=== PATIENT | female | born 1935 | race Caucasian/White ===

== ENCOUNTER 2021-11-25 05:44 | Inpatient (IN) | payer OTHER ==
[~2021-11-25] VITALS: Ht 157.5 cm; Wt 44.9 kg
[2021-11-25 05:50] VITALS: BP_SYST 129
[2021-11-25] MEDS ORDERED: ACETAMINOPHEN 500 MG TABLET PO ONE (06:30)
[2021-11-25] MEDS ORDERED: BACITRACIN 1 GM OINT TP ONE ×2 (06:30→09:20)
[2021-11-25] MEDS ORDERED: DIPHTH,PERTUSS(ACELL),TET VAC 0.5 ML VIAL (Tdap) I.M. ONE (06:45)
[2021-11-25] MEDS ORDERED: MORPHINE 4 MG INJ. 4 MG/ML VIAL IVP ONE (07:15)
[2021-11-25 08:10] LABS: BASOPHILS % (AUTO) 0.5 % (0.0-2.0); EOSINOPHILS % (AUTO) 0.4 % (0.0-4.0); HEMOGLOBIN 10.5 g/dL (12.0-16.0); LYMPHOCYTES # (AUTO) 0.8 K/uL (1.0-5.5); LYMPHOCYTES % (AUTO) 9.5 % (20.5-51.5); MEAN CORPUSCULAR HEMOGLOBIN 33 pg (27-31); MEAN CORPUSCULAR HGB CONC 34 % (32-36); MEAN CORPUSCULAR VOLUME 96 fL (79.0-98.0); MONOCYTES # (AUTO) 0.5 K/uL (0.0-1.0); MONOCYTES % (AUTO) 5.4 % (1.7-9.3); NEUTROPHILS # (AUTO) 7.4 K/uL (1.8-7.7); NEUTROPHILS % (AUTO) 84.2 % (40.0-70.0); PLATELET COUNT (AUTO) 327 K/uL (130-430); RED BLOOD CELL COUNT(AUTO) 3.22 MIL/uL (4.2-6.2); RED CELL DISTRIBUTION WIDTH 15.6 % (9.0-15.0); WHITE BLOOD COUNT (AUTO) 8.8 K/uL (4.8-10.8)
[2021-11-25 08:30] LABS: ANION GAP 8 (5-15); CALCIUM 8.7 mg/dL (8.4-11.0); CHLORIDE 106 mmol/L (98-107); CREATININE 0.62 mg/dL (0.55-1.30); GLUCOSE 110 mg/dL (70-99); POTASSIUM 3.6 mmol/L (3.5-5.1); UREA NITROGEN, BLOOD 19 mg/dL (8-21)
[2021-11-25 08:38] LABS: ALANINE AMINOTRANSFERASE 18 U/L (12-78); ALBUMIN 2.8 g/dL (3.4-4.8); ASPARTATE AMINOTRANSFERASE 30 U/L (10-37); TOTAL BILIRUBIN 0.3 mg/dL (0.0-1.0)
[2021-11-25 10:57] LABS: BILIRUBIN,URINE NEGATIVE (NEGATIVE); BLOOD, URINE NEGATIVE (NEGATIVE); CLARITY/URINE CLEAR (CLEAR); COLOR,URINE YELLOW (YELLOW); GLUCOSE,URINE NEGATIVE (NEGATIVE); KETONES,URINE NEGATIVE (NEGATIVE); LEUKOCYTE ESTERASE ,URINE NEGATIVE (NEGATIVE); NITRITE, URINE NEGATIVE (NEGATIVE); PROTEIN URINE NEGATIVE (NEGATIVE); UROBILINOGEN,URINE 0.2 (0.2-1.0)
[2021-11-25] MEDS ORDERED: HYDROmorphone 2 MG/ML VIAL IVP PRN (12:15)
[2021-11-25] MEDS ORDERED: ONDANSETRON 4 MG ODT TAB PO PRN (12:15)
[2021-11-25 12:30] VITALS: BP_SYST 128
[2021-11-25] MEDS: D5/0.45 NS 1,000 ML IV SCH (13:39)
[2021-11-25] MEDS: HYDROcodone/ACETAMIN 5-325 MG TAB (NORCO/ VICODIN) PO PRN ×2 (13:40→21:02)
[2021-11-25 14:39] LABS: BASOPHILS # (AUTO) 0.1 K/uL (0.0-0.2); BASOPHILS % (AUTO) 0.6 % (0.0-2.0); EOSINOPHILS % (AUTO) 0.4 % (0.0-4.0); HEMOGLOBIN 10.3 g/dL (12.0-16.0); LYMPHOCYTES % (AUTO) 9.5 % (20.5-51.5); MEAN CORPUSCULAR HEMOGLOBIN 33 pg (27-31); MEAN CORPUSCULAR HGB CONC 34 % (32-36); MEAN CORPUSCULAR VOLUME 96 fL (79.0-98.0); MONOCYTES # (AUTO) 0.6 K/uL (0.0-1.0); MONOCYTES % (AUTO) 6.2 % (1.7-9.3); NEUTROPHILS # (AUTO) 8.7 K/uL (1.8-7.7); NEUTROPHILS % (AUTO) 83.3 % (40.0-70.0); PLATELET COUNT (AUTO) 316 K/uL (130-430); RED BLOOD CELL COUNT(AUTO) 3.13 MIL/uL (4.2-6.2); RED CELL DISTRIBUTION WIDTH 15.5 % (9.0-15.0); WHITE BLOOD COUNT (AUTO) 10.5 K/uL (4.8-10.8)
[2021-11-25 16:00] VITALS: BP_SYST 136
[2021-11-25 19:40] VITALS: BP_SYST 122
[2021-11-25] MEDS: DOCUSATE SODIUM 100 MG CAPSULE PO SCH (21:00)
[2021-11-26] VITALS (7 sets, daily range): BP systolic 115–148
[2021-11-26] MEDS: HYDROcodone/ACETAMIN 5-325 MG TAB (NORCO/ VICODIN) PO PRN ×2 (06:21→20:39)
[2021-11-26] MEDS: D5/0.45 NS 1,000 ML IV SCH ×2 (06:23→17:01)
[2021-11-26 07:55] LABS: ANION GAP 6 (5-15); CALCIUM 7.8 mg/dL (8.4-11.0); CHLORIDE 103 mmol/L (98-107); CREATININE 0.62 mg/dL (0.55-1.30); GLUCOSE 126 mg/dL (70-99); POTASSIUM 3.9 mmol/L (3.5-5.1); UREA NITROGEN, BLOOD 9 mg/dL (8-21)
[2021-11-26 08:37] LABS: INR 4.6 (0.8-1.2)
[2021-11-26] MEDS: DOCUSATE SODIUM 100 MG CAPSULE PO SCH ×2 (08:41→20:39)
[2021-11-26] MEDS: CHOLECALCIFEROL (VITAMIN D3) 5,000 UNIT TABLET PO SCH (08:41)
[2021-11-26] MEDS ORDERED: PHYTONADIONE 10 MG in NS 50 ML IV ONE ×2 (13:30→15:15)
[2021-11-27] VITALS: BP_SYST 123
[2021-11-27] MEDS: D5/0.45 NS 1,000 ML IV SCH ×2 (03:58→16:35)
[2021-11-27 08:00] VITALS: BP_SYST 104
[2021-11-27 08:28] LABS: BASOPHILS % (AUTO) 0.3 % (0.0-2.0); HEMATOCRIT 28.6 % (36-48); HEMOGLOBIN 9.8 g/dL (12.0-16.0); LYMPHOCYTES # (AUTO) 1.1 K/uL (1.0-5.5); LYMPHOCYTES % (AUTO) 9.9 % (20.5-51.5); MEAN CORPUSCULAR HEMOGLOBIN 33 pg (27-31); MEAN CORPUSCULAR HGB CONC 34 % (32-36); MEAN CORPUSCULAR VOLUME 95 fL (79.0-98.0); MONOCYTES # (AUTO) 1.1 K/uL (0.0-1.0); MONOCYTES % (AUTO) 9.7 % (1.7-9.3); NEUTROPHILS # (AUTO) 8.8 K/uL (1.8-7.7); NEUTROPHILS % (AUTO) 80.1 % (40.0-70.0); PLATELET COUNT (AUTO) 267 K/uL (130-430); RED BLOOD CELL COUNT(AUTO) 3.01 MIL/uL (4.2-6.2); RED CELL DISTRIBUTION WIDTH 14.7 % (9.0-15.0)
[2021-11-27 08:44] LABS: INR 1.2 (0.8-1.2); PROTHROMBIN TIME 12.8 SECS (9.5-12.5)
[2021-11-27 08:47] LABS: ANION GAP 7 (5-15); CALCIUM 7.3 mg/dL (8.4-11.0); CHLORIDE 101 mmol/L (98-107); CREATININE 0.57 mg/dL (0.55-1.30); GLUCOSE 140 mg/dL (70-99); UREA NITROGEN, BLOOD 7 mg/dL (8-21)
[2021-11-27 09:27] LABS: POTASSIUM 2.6 mmol/L (3.5-5.1)
[2021-11-27] MEDS: DOCUSATE SODIUM 100 MG CAPSULE PO SCH ×2 (10:06→22:39)
[2021-11-27] MEDS: CHOLECALCIFEROL (VITAMIN D3) 5,000 UNIT TABLET PO SCH (10:06)
[2021-11-27 12:10] VITALS: BP_SYST 121
[2021-11-27] MEDS ORDERED: LOSA25TA18 PO (12:16)
[2021-11-27] MEDS ORDERED: FLUT1AER INH (12:16)
[2021-11-27] MEDS ORDERED: LEVO100T PO (12:16)
[2021-11-27] MEDS ORDERED: ACETAMINOPHEN/CODEINE 300 MG-30 MG TABLET PO PRN (14:15)
[2021-11-27] MEDS ORDERED: NALOXONE HCL 0.4 MG/ML AMP (NARCAN) IVP PRN (14:15)
[2021-11-27 14:58] VITALS: BP_SYST 104
[2021-11-27 16:30] VITALS: BP_SYST 139
[2021-11-27] MEDS: IBUPROFEN 600 MG TABLET PO PRN ×2 (16:31→22:40)
[2021-11-27] MEDS ORDERED: KCL 40 mEq in 100 mL (PREMIX) 100 ML IV ONE ×2 (18:30→18:36)
[2021-11-27] MEDS ORDERED: IPRATROPIUM/ALBUTEROL SULFATE 3 ML AMPUL.NEB (DUONEB) INH SCH (19:00)
[2021-11-27 20:00] VITALS: BP_SYST 135
[2021-11-28 01:38] VITALS: BP_SYST 108
[2021-11-28] MEDS: D5/0.45 NS 1,000 ML IV SCH ×2 (05:30→16:45)
[2021-11-28] MEDS: LEVOTHYROXINE SODIUM 0.1 MG TABLET PO SCH (05:30)
[2021-11-28 06:56] LABS: BASOPHILS % (AUTO) 0.3 % (0.0-2.0); EOSINOPHILS # (AUTO) 0.1 K/uL (0.0-0.4); EOSINOPHILS % (AUTO) 0.7 % (0.0-4.0); HEMATOCRIT 26.9 % (36-48); HEMOGLOBIN 9.1 g/dL (12.0-16.0); LYMPHOCYTES # (AUTO) 1.3 K/uL (1.0-5.5); LYMPHOCYTES % (AUTO) 10.9 % (20.5-51.5); MEAN CORPUSCULAR HEMOGLOBIN 32 pg (27-31); MEAN CORPUSCULAR HGB CONC 34 % (32-36); MEAN CORPUSCULAR VOLUME 95 fL (79.0-98.0); MONOCYTES # (AUTO) 1.4 K/uL (0.0-1.0); MONOCYTES % (AUTO) 11.5 % (1.7-9.3); NEUTROPHILS # (AUTO) 9.5 K/uL (1.8-7.7); NEUTROPHILS % (AUTO) 76.6 % (40.0-70.0); PLATELET COUNT (AUTO) 265 K/uL (130-430); RED BLOOD CELL COUNT(AUTO) 2.82 MIL/uL (4.2-6.2); RED CELL DISTRIBUTION WIDTH 14.7 % (9.0-15.0); WHITE BLOOD COUNT (AUTO) 12.3 K/uL (4.8-10.8)
[2021-11-28] MEDS: IPRATROPIUM/ALBUTEROL SULFATE 3 ML AMPUL.NEB (DUONEB) INH SCH (07:00)
[2021-11-28 07:18] LABS: ALANINE AMINOTRANSFERASE 10 U/L (12-78); ALBUMIN 1.7 g/dL (3.4-4.8); ANION GAP 6 (5-15); ASPARTATE AMINOTRANSFERASE 21 U/L (10-37); CALCIUM 7.2 mg/dL (8.4-11.0); CHLORIDE 103 mmol/L (98-107); CREATININE 0.85 mg/dL (0.55-1.30); GLUCOSE 131 mg/dL (70-99); POTASSIUM 3.1 mmol/L (3.5-5.1); TOTAL BILIRUBIN 0.6 mg/dL (0.0-1.0); UREA NITROGEN, BLOOD 16 mg/dL (8-21)
[2021-11-28 08:15] VITALS: BP_SYST 107
[2021-11-28] MEDS: ALBUTEROL MDI INHALATION 8 GM INH INH SCH (08:30)
[2021-11-28] MEDS ORDERED: FLUTICASONE/VILANTEROL 1 EACH BLST.W.DEV INH SCH (09:00)
[2021-11-28] MEDS: LOSARTAN POTASSIUM 25 MG TABLET PO SCH (11:48)
[2021-11-28] MEDS: cefTRIAXone 1 GM in D5W 50 ML IV SCH (11:48)
[2021-11-28] MEDS: CHOLECALCIFEROL (VITAMIN D3) 5,000 UNIT TABLET PO SCH (11:48)
[2021-11-28] MEDS: DOCUSATE SODIUM 100 MG CAPSULE PO SCH ×2 (11:49→20:23)
[2021-11-28 11:50] LABS: C-REACTIVE PROTEIN QUANT 17.6 mg/dL (0-0.5)
[2021-11-28 12:10] LABS: ERYTHROCYTE SEDIMENTATION RATE 69 MM/HR (0-20)
[2021-11-28 12:37] VITALS: BP_SYST 121
[2021-11-28] MEDS ORDERED: POLYETHYLENE GLYCOL 3350, 17 GM/ POWD.PACK PO ONE (15:15)
[2021-11-28 16:22] VITALS: BP_SYST 124
[2021-11-28] MEDS: IBUPROFEN 600 MG TABLET PO PRN (19:10)
[2021-11-28 20:00] VITALS: BP_SYST 121
[2021-11-29] VITALS: BP_SYST 114
[2021-11-29] MEDS: ALBUTEROL MDI INHALATION 8 GM INH INH SCH ×2 (01:30→20:06)
[2021-11-29] MEDS: LEVOTHYROXINE SODIUM 0.1 MG TABLET PO SCH (03:45)
[2021-11-29] MEDS: D5/0.45 NS 1,000 ML IV SCH ×2 (06:05→19:25)
[2021-11-29 07:51] LABS: TOTAL IRON BIND. CAPACITY 164 ug/dL (250-450)
[2021-11-29 08:05] LABS: PROTHROMBIN TIME 10.1 SECS (9.5-12.5)
[2021-11-29] MEDS: DOCUSATE SODIUM 100 MG CAPSULE PO SCH ×2 (10:13→20:17)
[2021-11-29] MEDS: POLYETHYLENE GLYCOL 3350, 17 GM/ POWD.PACK PO SCH (10:14)
[2021-11-29] MEDS: LOSARTAN POTASSIUM 25 MG TABLET PO SCH (10:14)
[2021-11-29] MEDS: cefTRIAXone 1 GM in D5W 50 ML IV SCH (10:15)
[2021-11-29] MEDS: CHOLECALCIFEROL (VITAMIN D3) 5,000 UNIT TABLET PO SCH (10:15)
[2021-11-29 12:30] VITALS: BP_SYST 133
[2021-11-29 14:45] VITALS: BP_SYST 120
[2021-11-29] MEDS: ACETAMINOPHEN 325 MG TABLET PO PRN (15:28)
[2021-11-29 16:04] LABS: PROTHROMBIN TIME 10.1 SECS (9.5-12.5)
[2021-11-29] MEDS ORDERED: POTASSIUM CHLORIDE 40 MEQ in NS 250 ML IV ONE (19:00)
[2021-11-29 20:00] VITALS: BP_SYST 114
[2021-11-29] MEDS: POTASSIUM CHLORIDE 20 mEq in 100 mL (PREMIX) 100 ML x 2 doses IV SCH ×2 (20:17→23:15)
[2021-11-30 01:30] VITALS: BP_SYST 106
[2021-11-30] MEDS: LEVOTHYROXINE SODIUM 0.1 MG TABLET PO SCH (03:41)
[2021-11-30 07:02] LABS: BASOPHILS % (AUTO) 0.4 % (0.0-2.0); EOSINOPHILS # (AUTO) 0.2 K/uL (0.0-0.4); EOSINOPHILS % (AUTO) 1.7 % (0.0-4.0); HEMATOCRIT 26.5 % (36-48); HEMOGLOBIN 9.2 g/dL (12.0-16.0); LYMPHOCYTES # (AUTO) 1.2 K/uL (1.0-5.5); LYMPHOCYTES % (AUTO) 11.3 % (20.5-51.5); MEAN CORPUSCULAR HEMOGLOBIN 33 pg (27-31); MEAN CORPUSCULAR HGB CONC 35 % (32-36); MEAN CORPUSCULAR VOLUME 95 fL (79.0-98.0); MONOCYTES # (AUTO) 1.2 K/uL (0.0-1.0); MONOCYTES % (AUTO) 10.9 % (1.7-9.3); NEUTROPHILS # (AUTO) 8.2 K/uL (1.8-7.7); NEUTROPHILS % (AUTO) 75.7 % (40.0-70.0); PLATELET COUNT (AUTO) 375 K/uL (130-430); RED CELL DISTRIBUTION WIDTH 14.1 % (9.0-15.0); WHITE BLOOD COUNT (AUTO) 10.8 K/uL (4.8-10.8)
[2021-11-30 08:31] LABS: ANION GAP 6 (5-15); CALCIUM 7.5 mg/dL (8.4-11.0); CHLORIDE 100 mmol/L (98-107); CREATININE 0.69 mg/dL (0.55-1.30); GLUCOSE 110 mg/dL (70-99); POTASSIUM 3.9 mmol/L (3.5-5.1); UREA NITROGEN, BLOOD 11 mg/dL (8-21)
[2021-11-30] MEDS: ALBUTEROL MDI INHALATION 8 GM INH INH SCH (08:35)
[2021-11-30] MEDS: D5/0.45 NS 1,000 ML IV SCH ×2 (08:45→20:59)
[2021-11-30 09:00] VITALS: BP_SYST 113
[2021-11-30] MEDS: POLYETHYLENE GLYCOL 3350, 17 GM/ POWD.PACK PO SCH (09:00)
[2021-11-30] MEDS: CHOLECALCIFEROL (VITAMIN D3) 5,000 UNIT TABLET PO SCH (09:00)
[2021-11-30] MEDS: DOCUSATE SODIUM 100 MG CAPSULE PO SCH ×2 (09:00→20:56)
[2021-11-30] MEDS: LOSARTAN POTASSIUM 25 MG TABLET PO SCH (09:00)
[2021-11-30] MEDS ORDERED: traMADol HCL HCL 50 MG TABLET (ULTRAM) PO PRN (12:30)
[2021-11-30] MEDS: cefTRIAXone 1 GM in D5W 50 ML IV SCH (12:41)
[2021-11-30] MEDS ORDERED: fentaNYL CITRATE 250 MCG/5 ML AMP IV ONE (13:00)
[2021-11-30] MEDS ORDERED: KETOROLAC TROMETHAMINE 30 MG VIAL IVP ONE (13:00)
[2021-11-30] MEDS ORDERED: DESFLURANE 15 MIN GAS INH ONE (13:00)
[2021-11-30] MEDS ORDERED: SUGAMMADEX SODIUM 200 MG/2 ML VIAL IV ONE (13:00)
[2021-11-30] MEDS ORDERED: PROPOFOL 200MG/ 20ML VIAL (DIPRIVAN) IV ONE (13:00)
[2021-11-30] MEDS ORDERED: LR 1,000 ML IV.SOLN IV ONE (13:00)
[2021-11-30] MEDS ORDERED: ONDANSETRON HCL 4 MG/2 ML VIAL IVP ONE (13:00)
[2021-11-30] MEDS ORDERED: NS IRRIG SOLN 1000 ML IR ONE (13:00)
[2021-11-30] MEDS ORDERED: CEFAZOLIN 1 GM IVPB PREMIX 50 ML IV ONE (13:00)
[2021-11-30] MEDS ORDERED: ROCURONIUM BROMIDE 10 MG/ML (ZEMURON) IV ONE (13:00)
[2021-11-30] MEDS ORDERED: DEXAMETHASONE SOD PHOSPHATE 4 MG/ML VIAL IVP ONE (13:00)
[2021-11-30] MEDS ORDERED: MIDAZOLAM HCL 5 MG/5 ML VIAL IVP ONE (13:00)
[2021-11-30] MEDS ORDERED: METOCLOPRAMIDE HCL 10 MG/2 ML VIAL IVP PRN (14:00)
[2021-11-30] MEDS ORDERED: MEPERIDINE HCL/PF 25 MG/ML DISP.SYRIN IVP PRN (14:00)
[2021-11-30] MEDS ORDERED: LR 1,000 ML IV SCH (14:00)
[2021-11-30] MEDS ORDERED: HYDROmorphone 1 MG/ML INJ. CARTRIDGE IVP PRN ×2 (14:00)
[2021-11-30] MEDS ORDERED: ACETAMINOPHEN I.V. 1000 MG 100 ML IV ONE (14:03)
[2021-11-30] MEDS ORDERED: IBUPROFEN 600 MG TABLET PO PRN (16:45)
[2021-11-30] MEDS ORDERED: DIPHENHYDRAMINE INJ 50 MG/ML VIAL IVP PRN (16:45)
[2021-11-30] MEDS ORDERED: ONDANSETRON 4 MG ODT TAB PO PRN (16:45)
[2021-11-30] MEDS ORDERED: ACETAMINOPHEN 325 MG TABLET PO PRN (16:45)
[2021-11-30] MEDS ORDERED: LR 500 ML IV ONE (16:45)
[2021-11-30] MEDS ORDERED: HYDROmorphone 2 MG/ML VIAL IVP PRN (16:45)
[2021-11-30 17:45] VITALS: BP_SYST 109
[2021-11-30 18:08] LABS: FOLATE (FOLIC ACID) 13.2 ng/mL (>3.0)
[2021-11-30 19:52] VITALS: BP_SYST 111
[2021-11-30] MEDS: CEFAZOLIN 1 GM IVPB PREMIX 50 ML IV SCH (20:57)
[2021-11-30] MEDS: FERROUS SULFATE 325 MG TABLET.DR PO SCH (20:58)
[2021-11-30] MEDS ORDERED: DOCUSATE SODIUM 100 MG CAPSULE PO SCH (21:00)
[2021-12-01 01:39] VITALS: BP_SYST 106
[2021-12-01 04:11] VITALS: BP_SYST 119
[2021-12-01] MEDS: ALBUTEROL MDI INHALATION 8 GM INH INH SCH (04:54)
[2021-12-01] MEDS: CEFAZOLIN 1 GM IVPB PREMIX 50 ML IV SCH (05:49)
[2021-12-01 07:08] LABS: BASOPHILS % (AUTO) 0.1 % (0.0-2.0); HEMATOCRIT 24.6 % (36-48); HEMOGLOBIN 8.1 g/dL (12.0-16.0); LYMPHOCYTES # (AUTO) 0.9 K/uL (1.0-5.5); LYMPHOCYTES % (AUTO) 6.8 % (20.5-51.5); MEAN CORPUSCULAR HEMOGLOBIN 32 pg (27-31); MEAN CORPUSCULAR HGB CONC 33 % (32-36); MEAN CORPUSCULAR VOLUME 96 fL (79.0-98.0); MONOCYTES % (AUTO) 8.3 % (1.7-9.3); NEUTROPHILS # (AUTO) 10.7 K/uL (1.8-7.7); NEUTROPHILS % (AUTO) 84.8 % (40.0-70.0); PLATELET COUNT (AUTO) 405 K/uL (130-430); RED BLOOD CELL COUNT(AUTO) 2.56 MIL/uL (4.2-6.2); RED CELL DISTRIBUTION WIDTH 14.2 % (9.0-15.0); WHITE BLOOD COUNT (AUTO) 12.6 K/uL (4.8-10.8)
[2021-12-01] MEDS: LEVOTHYROXINE SODIUM 0.1 MG TABLET PO SCH (07:53)
[2021-12-01] MEDS: D5/0.45 NS 1,000 ML IV SCH ×2 (07:53→19:07)
[2021-12-01 08:06] VITALS: BP_SYST 100
[2021-12-01] MEDS: LOSARTAN POTASSIUM 25 MG TABLET PO SCH (09:00)
[2021-12-01] MEDS: ENOXAPARIN SODIUM 30 MG/0.3 ML SYRINGE SUBCUT SCH (09:22)
[2021-12-01] MEDS: CHOLECALCIFEROL (VITAMIN D3) 5,000 UNIT TABLET PO SCH (09:22)
[2021-12-01] MEDS: DOCUSATE SODIUM 100 MG CAPSULE PO SCH ×2 (09:22→22:49)
[2021-12-01] MEDS: FERROUS SULFATE 325 MG TABLET.DR PO SCH ×2 (09:22→22:50)
[2021-12-01] MEDS: POLYETHYLENE GLYCOL 3350, 17 GM/ POWD.PACK PO SCH (09:22)
[2021-12-01] MEDS: IBUPROFEN 600 MG TABLET PO PRN ×2 (11:47→22:56)
[2021-12-01 12:48] VITALS: BP_SYST 109
[2021-12-01] MEDS: cefTRIAXone 1 GM in D5W 50 ML IV SCH (12:49)
[2021-12-01 16:58] VITALS: BP_SYST 101
[2021-12-01 19:45] VITALS: BP_SYST 102
[2021-12-02] VITALS: BP_SYST 105
[2021-12-02] MEDS: LEVOTHYROXINE SODIUM 0.1 MG TABLET PO SCH (06:41)
[2021-12-02] MEDS: IPRATROPIUM/ALBUTEROL SULFATE 3 ML AMPUL.NEB (DUONEB) INH SCH (07:00)
[2021-12-02] MEDS: ALBUTEROL MDI INHALATION 8 GM INH INH SCH ×3 (07:35→19:53)
[2021-12-02 07:42] LABS: BASOPHILS # (AUTO) 0.1 K/uL (0.0-0.2); BASOPHILS % (AUTO) 0.6 % (0.0-2.0); EOSINOPHILS # (AUTO) 0.5 K/uL (0.0-0.4); EOSINOPHILS % (AUTO) 4.7 % (0.0-4.0); LYMPHOCYTES # (AUTO) 1.8 K/uL (1.0-5.5); LYMPHOCYTES % (AUTO) 18.3 % (20.5-51.5); MEAN CORPUSCULAR HEMOGLOBIN 33 pg (27-31); MEAN CORPUSCULAR HGB CONC 35 % (32-36); MEAN CORPUSCULAR VOLUME 95 fL (79.0-98.0); MONOCYTES % (AUTO) 9.7 % (1.7-9.3); NEUTROPHILS # (AUTO) 6.6 K/uL (1.8-7.7); NEUTROPHILS % (AUTO) 66.7 % (40.0-70.0); PLATELET COUNT (AUTO) 395 K/uL (130-430); RED BLOOD CELL COUNT(AUTO) 2.01 MIL/uL (4.2-6.2); RED CELL DISTRIBUTION WIDTH 14.3 % (9.0-15.0); WHITE BLOOD COUNT (AUTO) 9.8 K/uL (4.8-10.8)
[2021-12-02 08:00] VITALS: BP_SYST 93
[2021-12-02] MEDS: CHOLECALCIFEROL (VITAMIN D3) 5,000 UNIT TABLET PO SCH (08:59)
[2021-12-02] MEDS: ENOXAPARIN SODIUM 30 MG/0.3 ML SYRINGE SUBCUT SCH (08:59)
[2021-12-02] MEDS: POLYETHYLENE GLYCOL 3350, 17 GM/ POWD.PACK PO SCH (08:59)
[2021-12-02] MEDS: DOCUSATE SODIUM 100 MG CAPSULE PO SCH ×2 (08:59→21:00)
[2021-12-02] MEDS: FERROUS SULFATE 325 MG TABLET.DR PO SCH ×2 (08:59→22:32)
[2021-12-02] MEDS: LOSARTAN POTASSIUM 25 MG TABLET PO SCH (09:00)
[2021-12-02 09:30] LABS: HEMATOCRIT 19.1 % (36-48); HEMOGLOBIN 6.6 g/dL (12.0-16.0)
[2021-12-02] MEDS ORDERED: TRAM50TA2 PO (10:36)
[2021-12-02] MEDS ORDERED: POLY17PO4 PO (10:36)
[2021-12-02] MEDS: D5/0.45 NS 1,000 ML IV SCH (11:36)
[2021-12-02] MEDS: cefTRIAXone 1 GM in D5W 50 ML IV SCH (11:36)
[2021-12-02 12:50] VITALS: BP_SYST 99
[2021-12-02 15:45] VITALS: BP_SYST 106
[2021-12-02 20:00] VITALS: BP_SYST 115
[2021-12-03] MEDS: D5/0.45 NS 1,000 ML IV SCH ×2 (03:25→17:22)
[2021-12-03 03:37] VITALS: BP_SYST 126
[2021-12-03] MEDS: LEVOTHYROXINE SODIUM 0.1 MG TABLET PO SCH (06:41)
[2021-12-03 08:00] VITALS: BP_SYST 115
[2021-12-03] MEDS: LOSARTAN POTASSIUM 25 MG TABLET PO SCH (09:00)
[2021-12-03] MEDS: POLYETHYLENE GLYCOL 3350, 17 GM/ POWD.PACK PO SCH (09:00)
[2021-12-03] MEDS: DOCUSATE SODIUM 100 MG CAPSULE PO SCH ×2 (09:00→23:01)
[2021-12-03] MEDS: ALBUTEROL MDI INHALATION 8 GM INH INH SCH (09:03)
[2021-12-03] MEDS: ACETAMINOPHEN 325 MG TABLET PO PRN (09:39)
[2021-12-03] MEDS: CHOLECALCIFEROL (VITAMIN D3) 5,000 UNIT TABLET PO SCH (09:40)
[2021-12-03] MEDS: FERROUS SULFATE 325 MG TABLET.DR PO SCH ×2 (09:40→23:00)
[2021-12-03] MEDS: ENOXAPARIN SODIUM 30 MG/0.3 ML SYRINGE SUBCUT SCH (09:42)
[2021-12-03] MEDS: cefTRIAXone 1 GM in D5W 50 ML IV SCH (12:56)
[2021-12-03 13:50] VITALS: BP_SYST 97
[2021-12-03 16:00] VITALS: BP_SYST 136
[2021-12-03] MEDS: IBUPROFEN 600 MG TABLET PO PRN (16:44)
[2021-12-03 20:00] VITALS: BP_SYST 125
[2021-12-04 00:50] VITALS: BP_SYST 131
[2021-12-04] MEDS: IBUPROFEN 600 MG TABLET PO PRN (03:22)
[2021-12-04] MEDS: ALBUTEROL MDI INHALATION 8 GM INH INH SCH ×3 (03:57→20:06)
[2021-12-04] MEDS: LEVOTHYROXINE SODIUM 0.1 MG TABLET PO SCH (07:07)
[2021-12-04] MEDS: D5/0.45 NS 1,000 ML IV SCH ×2 (07:08→20:07)
[2021-12-04] MEDS: IPRATROPIUM/ALBUTEROL SULFATE 3 ML AMPUL.NEB (DUONEB) INH SCH ×2 (07:28→19:00)
[2021-12-04 07:46] VITALS: BP_SYST 134
[2021-12-04] MEDS: DOCUSATE SODIUM 100 MG CAPSULE PO SCH ×2 (09:12→20:07)
[2021-12-04] MEDS: LOSARTAN POTASSIUM 25 MG TABLET PO SCH (09:12)
[2021-12-04] MEDS: CHOLECALCIFEROL (VITAMIN D3) 5,000 UNIT TABLET PO SCH (09:12)
[2021-12-04] MEDS: ENOXAPARIN SODIUM 30 MG/0.3 ML SYRINGE SUBCUT SCH (09:12)
[2021-12-04] MEDS: FERROUS SULFATE 325 MG TABLET.DR PO SCH ×2 (09:13→20:05)
[2021-12-04] MEDS: POLYETHYLENE GLYCOL 3350, 17 GM/ POWD.PACK PO SCH (09:13)
[2021-12-04] MEDS ORDERED: TRAM50TA2 PO (09:32)
[2021-12-04] MEDS ORDERED: POLY17PO4 PO (09:34)
[2021-12-04] MEDS: cefTRIAXone 1 GM in D5W 50 ML IV SCH (11:29)
[2021-12-04] MEDS: MUPIROCIN 2% TOPICAL OINTMENT 22 GM NS SCH ×2 (11:35→20:06)
[2021-12-04 12:34] LABS: BILIRUBIN,URINE NEGATIVE (NEGATIVE); BLOOD, URINE NEGATIVE (NEGATIVE); COLOR,URINE YELLOW (YELLOW); GLUCOSE,URINE NEGATIVE (NEGATIVE); KETONES,URINE NEGATIVE (NEGATIVE); LEUKOCYTE ESTERASE ,URINE TRACE (NEGATIVE); NITRITE, URINE NEGATIVE (NEGATIVE); PROTEIN URINE NEGATIVE (NEGATIVE); UROBILINOGEN,URINE 0.2 (0.2-1.0)
[2021-12-04 12:51] LABS: CLARITY/URINE SLIGHTLY HAZY (CLEAR)
[2021-12-04 13:02] LABS: BACTERIA,URINE FEW /HPF (None Seen); RBC,URINE 0-3 /HPF (0-3); WBC,URINE 0-3 /HPF (0-3)
[2021-12-04 13:36] LABS: BASOPHILS # (AUTO) 0.1 K/uL (0.0-0.2); BASOPHILS % (AUTO) 0.9 % (0.0-2.0); EOSINOPHILS # (AUTO) 0.4 K/uL (0.0-0.4); EOSINOPHILS % (AUTO) 4.9 % (0.0-4.0); HEMATOCRIT 30.9 % (36-48); HEMOGLOBIN 10.6 g/dL (12.0-16.0); LYMPHOCYTES # (AUTO) 1.4 K/uL (1.0-5.5); LYMPHOCYTES % (AUTO) 16.3 % (20.5-51.5); MEAN CORPUSCULAR HEMOGLOBIN 31 pg (27-31); MEAN CORPUSCULAR HGB CONC 34 % (32-36); MEAN CORPUSCULAR VOLUME 91 fL (79.0-98.0); MONOCYTES # (AUTO) 0.8 K/uL (0.0-1.0); MONOCYTES % (AUTO) 9.6 % (1.7-9.3); NEUTROPHILS # (AUTO) 5.8 K/uL (1.8-7.7); NEUTROPHILS % (AUTO) 68.3 % (40.0-70.0); PLATELET COUNT (AUTO) 508 K/uL (130-430); RED BLOOD CELL COUNT(AUTO) 3.41 MIL/uL (4.2-6.2); RED CELL DISTRIBUTION WIDTH 16.8 % (9.0-15.0); WHITE BLOOD COUNT (AUTO) 8.5 K/uL (4.8-10.8)
[2021-12-04] MEDS ORDERED: traMADol HCL HCL 50 MG TABLET (ULTRAM) PO PRN (14:45)
[2021-12-04] MEDS ORDERED: LOPERAMIDE HCL 2 MG CAPSULE PO PRN (16:30)
[2021-12-04 17:08] VITALS: BP_SYST 134
[2021-12-04 20:00] VITALS: BP_SYST 128
[2021-12-05] VITALS: BP_SYST 127
[2021-12-05] MEDS: LEVOTHYROXINE SODIUM 0.1 MG TABLET PO SCH (06:59)
[2021-12-05] MEDS: IPRATROPIUM/ALBUTEROL SULFATE 3 ML AMPUL.NEB (DUONEB) INH SCH (07:26)
[2021-12-05 07:29] LABS: BASOPHILS # (AUTO) 0.1 K/uL (0.0-0.2); BASOPHILS % (AUTO) 1.2 % (0.0-2.0); EOSINOPHILS # (AUTO) 0.6 K/uL (0.0-0.4); EOSINOPHILS % (AUTO) 5.8 % (0.0-4.0); HEMATOCRIT 29.4 % (36-48); HEMOGLOBIN 10.4 g/dL (12.0-16.0); LYMPHOCYTES # (AUTO) 1.6 K/uL (1.0-5.5); LYMPHOCYTES % (AUTO) 15.9 % (20.5-51.5); MEAN CORPUSCULAR HEMOGLOBIN 32 pg (27-31); MEAN CORPUSCULAR HGB CONC 35 % (32-36); MEAN CORPUSCULAR VOLUME 90 fL (79.0-98.0); NEUTROPHILS # (AUTO) 6.8 K/uL (1.8-7.7); NEUTROPHILS % (AUTO) 67.1 % (40.0-70.0); PLATELET COUNT (AUTO) 549 K/uL (130-430); RED BLOOD CELL COUNT(AUTO) 3.26 MIL/uL (4.2-6.2); RED CELL DISTRIBUTION WIDTH 16.3 % (9.0-15.0); WHITE BLOOD COUNT (AUTO) 10.1 K/uL (4.8-10.8)
[2021-12-05 08:00] VITALS: BP_SYST 120
[2021-12-05] MEDS: D5/0.45 NS 1,000 ML IV SCH (08:45)
[2021-12-05] MEDS: DOCUSATE SODIUM 100 MG CAPSULE PO SCH (09:00)
[2021-12-05] MEDS: CHOLECALCIFEROL (VITAMIN D3) 5,000 UNIT TABLET PO SCH (09:34)
[2021-12-05] MEDS: LOSARTAN POTASSIUM 25 MG TABLET PO SCH (09:34)
[2021-12-05] MEDS: FERROUS SULFATE 325 MG TABLET.DR PO SCH (09:35)
[2021-12-05] MEDS: MUPIROCIN 2% TOPICAL OINTMENT 22 GM NS SCH (09:36)
[2021-12-05] MEDS: ENOXAPARIN SODIUM 30 MG/0.3 ML SYRINGE SUBCUT SCH (09:37)
[2021-12-05 11:40] VITALS: BP_SYST 124
[2021-12-05 13:09] VITALS: BP_SYST 124
== END 2021-12-05 13:35 | disposition home or self-care (01) | DRG 480 ==
LOC: SED 05:44 → SMU 08:41
PROVIDERS: ADMIT Specialist; ATTEND Specialist
PROC: 0QS606Z Reposition Right Upper Femur with Intramedullary Internal Fixation Device, Open Approach (ICD-10-PCS; principal; 2021-11-25)
PROC: 30233N1 Transfusion of Nonautologous Red Blood Cells into Peripheral Vein, Percutaneous Approach (ICD-10-PCS; 2021-12-02)
DX: S72.141A Displaced intertrochanteric fracture of right femur, initial encounter for closed fracture (principal); U07.1 COVID-19; E87.1 Hypo-osmolality and hyponatremia; D68.9 Coagulation defect, unspecified; D86.9 Sarcoidosis, unspecified; E83.51 Hypocalcemia; M16.11 Unilateral primary osteoarthritis, right hip; I10 Essential (primary) hypertension; J47.9 Bronchiectasis, uncomplicated; D64.9 Anemia, unspecified; E87.6 Hypokalemia; E83.52 Hypercalcemia; M81.0 Age-related osteoporosis without current pathological fracture; Z96.642 Presence of left artificial hip joint; W01.0XXA Fall on same level from slipping, tripping and stumbling without subsequent striking against object, initial encounter; Y92.89 Other specified places as the place of occurrence of the external cause; Y99.8 Other external cause status; Y93.K1 Activity, walking an animal
CPT/HCPCS: 36415; 71045; 72170-TC; 73501; 73502; 73564; 80048; 80053; 81000; 81003; 82272; 82607; 82728; 82746; 83540; 83550; 84484; 85025; 85384; 85610-TC; 85651-TC; 85730-TC; 86140; 86886; 86900; 86901; 86920; 87040; 87081; 87086; 90715; 93005; 93306; 94640; 94664; 94760; 97110-GP; 97116-GP; 97530-GP; 99285; A2007; C1713; C1769; J0131; J0690; J0696; J1100; J1200; J1650; J1885; J2250; J2405; J2704; J3010; J3430; J3480; J3490; J7060; J7120; P9021

== ENCOUNTER 2022-04-13 14:16 | Inpatient (IN) | payer OTHER ==
[~2022-04-13] VITALS: Ht 154.9 cm; Wt 38.1 kg
[~2022-04-13 14:16] MED LIST: FERR236T3 PO; FLUT1AER INH; LEVO100T PO; NEU300 PO; OMEP-268 PO; PANT40TA45 PO; RIFA150C7 PO; VANC1.5V IV
[2022-04-13 14:28] VITALS: BP_SYST 121
[2022-04-13 15:34] LABS: BASOPHILS # (AUTO) 0.1 K/uL (0.0-0.2); BASOPHILS % (AUTO) 1.1 % (0.0-2.0); EOSINOPHILS # (AUTO) 0.1 K/uL (0.0-0.4); EOSINOPHILS % (AUTO) 1.1 % (0.0-4.0); HEMATOCRIT 29.2 % (36-48); HEMOGLOBIN 9.5 g/dL (12.0-16.0); LYMPHOCYTES # (AUTO) 1.3 K/uL (1.0-5.5); MEAN CORPUSCULAR HEMOGLOBIN 28 pg (27-31); MEAN CORPUSCULAR HGB CONC 33 % (32-36); MEAN CORPUSCULAR VOLUME 87 fL (79.0-98.0); MONOCYTES # (AUTO) 0.6 K/uL (0.0-1.0); NEUTROPHILS % (AUTO) 73.8 % (40.0-70.0); PLATELET COUNT (AUTO) 622 K/uL (130-430); RED BLOOD CELL COUNT(AUTO) 3.38 MIL/uL (4.2-6.2); RED CELL DISTRIBUTION WIDTH 16.3 % (9.0-15.0); WHITE BLOOD COUNT (AUTO) 8.1 K/uL (4.8-10.8)
[2022-04-13 16:17] LABS: ANION GAP 6 (5-15); CALCIUM 8.5 mg/dL (8.4-11.0); CHLORIDE 104 mmol/L (98-107); CREATININE 0.48 mg/dL (0.55-1.30); GLUCOSE 86 mg/dL (70-99); UREA NITROGEN, BLOOD 24 mg/dL (8-21)
[2022-04-13 16:24] LABS: ALANINE AMINOTRANSFERASE 11 U/L (12-78); ALBUMIN 2.2 g/dL (3.4-4.8); ASPARTATE AMINOTRANSFERASE 13 U/L (10-37); TOTAL BILIRUBIN 0.2 mg/dL (0.0-1.0)
[2022-04-13] MEDS ORDERED: LACT1CAP69 PO (16:40)
[2022-04-13] MEDS ORDERED: LIP10 PO (16:40)
[2022-04-13 20:22] VITALS: BP_SYST 130
[2022-04-13] MEDS ORDERED: ONDANSETRON HCL 4 MG/2 ML VIAL IVP PRN (22:45)
[2022-04-14 00:43] VITALS: BP_SYST 123
[2022-04-14] MEDS ORDERED: NORMAL SALINE 5 ML DISP.SYRIN IVF SCH (06:00)
[2022-04-14] MEDS: NORMAL SALINE 5 ML DISP.SYRIN IVF SCH ×3 (07:02→21:50)
[2022-04-14 07:06] LABS: EOSINOPHILS # (AUTO) 0.1 K/uL (0.0-0.4); EOSINOPHILS % (AUTO) 1.6 % (0.0-4.0); HEMOGLOBIN 9.4 g/dL (12.0-16.0); LYMPHOCYTES # (AUTO) 1.1 K/uL (1.0-5.5); LYMPHOCYTES % (AUTO) 15.1 % (20.5-51.5); MEAN CORPUSCULAR HEMOGLOBIN 29 pg (27-31); MEAN CORPUSCULAR HGB CONC 34 % (32-36); MEAN CORPUSCULAR VOLUME 86 fL (79.0-98.0); MONOCYTES # (AUTO) 0.6 K/uL (0.0-1.0); PLATELET COUNT (AUTO) 617 K/uL (130-430); RED BLOOD CELL COUNT(AUTO) 3.25 MIL/uL (4.2-6.2); RED CELL DISTRIBUTION WIDTH 16.2 % (9.0-15.0); WHITE BLOOD COUNT (AUTO) 7.4 K/uL (4.8-10.8)
[2022-04-14] MEDS: LEVOTHYROXINE SODIUM 0.1 MG TABLET PO SCH (07:17)
[2022-04-14 07:44] LABS: ALANINE AMINOTRANSFERASE 11 U/L (12-78); ALBUMIN 2.2 g/dL (3.4-4.8); ANION GAP 8 (5-15); ASPARTATE AMINOTRANSFERASE 15 U/L (10-37); CALCIUM 8.5 mg/dL (8.4-11.0); CHLORIDE 102 mmol/L (98-107); CHOLESTEROL 110 mg/dL (<200); CREATININE 0.51 mg/dL (0.55-1.30); GLUCOSE 75 mg/dL (70-99); HDL CHOLESTEROL 70 mg/dL (>55); PHOSPHORUS 3.6 mg/dL (2.7-4.5); THYROID STIMULATING HORMONE 14.96 uIu/mL (0.34-4.82); TOTAL BILIRUBIN 0.3 mg/dL (0.0-1.0); TRIGLYCERIDES 52 mg/dL (30-150); UREA NITROGEN, BLOOD 20 mg/dL (8-21)
[2022-04-14 07:54] LABS: BASOPHILS % (AUTO) 0.4 % (0.0-2.0); NEUTROPHILS # (AUTO) 5.6 K/uL (1.8-7.7); NEUTROPHILS % (AUTO) 74.9 % (40.0-70.0)
[2022-04-14 08:10] VITALS: BP_SYST 113
[2022-04-14] MEDS: LACTOBACILLUS RHAMNOSUS GG 1 CAP CAPSULE PO SCH (08:52)
[2022-04-14] MEDS: PANTOPRAZOLE SODIUM 40 MG TAB PO SCH ×2 (08:52→21:49)
[2022-04-14] MEDS ORDERED: LACTOBACILLUS ACIDOPHILUS PO SCH (09:00)
[2022-04-14] MEDS ORDERED: FERROUS GLUCONATE PO SCH (09:00)
[2022-04-14] MEDS ORDERED: FERROUS GLUCONATE 324 MG TABLET PO ONE (10:30)
[2022-04-14] MEDS: ASPIRIN 81 MG TAB.CHEW PO SCH (10:57)
[2022-04-14 12:02] VITALS: BP_SYST 130
[2022-04-14 18:40] VITALS: BP_SYST 125
[2022-04-14 19:00] VITALS: BP_SYST 113
[2022-04-14 20:00] VITALS: BP_SYST 113
[2022-04-14] MEDS ORDERED: ATORVASTATIN 20 MG TABLET PO SCH ×2 (20:00→21:00)
[2022-04-14] MEDS ORDERED: GABAPENTIN 300 MG CAPSULE PO SCH (21:00)
[2022-04-14] MEDS ORDERED: ATORVASTATIN 10 MG TABLET PO SCH (21:00)
[2022-04-15] VITALS: BP_SYST 115
[2022-04-15] MEDS: NORMAL SALINE 5 ML DISP.SYRIN IVF SCH ×2 (05:13→14:21)
[2022-04-15] MEDS: LEVOTHYROXINE SODIUM 0.1 MG TABLET PO SCH (06:56)
[2022-04-15 07:45] LABS: BASOPHILS # (AUTO) 0.1 K/uL (0.0-0.2); EOSINOPHILS # (AUTO) 0.1 K/uL (0.0-0.4); EOSINOPHILS % (AUTO) 1.4 % (0.0-4.0); HEMATOCRIT 29.7 % (36-48); HEMOGLOBIN 9.9 g/dL (12.0-16.0); LYMPHOCYTES # (AUTO) 1.1 K/uL (1.0-5.5); LYMPHOCYTES % (AUTO) 13.1 % (20.5-51.5); MEAN CORPUSCULAR HEMOGLOBIN 29 pg (27-31); MEAN CORPUSCULAR HGB CONC 33 % (32-36); MEAN CORPUSCULAR VOLUME 86 fL (79.0-98.0); MONOCYTES # (AUTO) 0.7 K/uL (0.0-1.0); MONOCYTES % (AUTO) 8.2 % (1.7-9.3); NEUTROPHILS # (AUTO) 6.6 K/uL (1.8-7.7); NEUTROPHILS % (AUTO) 76.3 % (40.0-70.0); PLATELET COUNT (AUTO) 583 K/uL (130-430); RED BLOOD CELL COUNT(AUTO) 3.45 MIL/uL (4.2-6.2); RED CELL DISTRIBUTION WIDTH 16.2 % (9.0-15.0); WHITE BLOOD COUNT (AUTO) 8.7 K/uL (4.8-10.8)
[2022-04-15 08:00] VITALS: BP_SYST 112
[2022-04-15 08:04] LABS: ANION GAP 5 (5-15); CALCIUM 8.3 mg/dL (8.4-11.0); CHLORIDE 100 mmol/L (98-107); CREATININE 0.51 mg/dL (0.55-1.30); GLUCOSE 95 mg/dL (70-99); UREA NITROGEN, BLOOD 21 mg/dL (8-21)
[2022-04-15] MEDS: ASPIRIN 81 MG TAB.CHEW PO SCH (08:22)
[2022-04-15] MEDS: LACTOBACILLUS RHAMNOSUS GG 1 CAP CAPSULE PO SCH (08:23)
[2022-04-15] MEDS: PANTOPRAZOLE SODIUM 40 MG TAB PO SCH (08:23)
[2022-04-15] MEDS ORDERED: FERROUS GLUCONATE 324 MG TABLET PO SCH (09:00)
[2022-04-15 12:00] VITALS: BP_SYST 103
[2022-04-15] MEDS ORDERED: LIP20 PO (12:41)
[2022-04-15] MEDS ORDERED: ASA81 PO (12:41)
[2022-04-15 15:19] VITALS: BP_SYST 120
== END 2022-04-15 16:00 | disposition home health service (06) | DRG 64 ==
LOC: SED 14:16 → STU 17:07
PROVIDERS: ADMIT Preventive Medicine Preventive Medicine/Occupational Environmental Medicine; ATTEND Preventive Medicine Preventive Medicine/Occupational Environmental Medicine
DX: I63.81 Other cerebral infarction due to occlusion or stenosis of small artery (principal); E43 Unspecified severe protein-calorie malnutrition; D86.9 Sarcoidosis, unspecified; E03.9 Hypothyroidism, unspecified; E78.5 Hyperlipidemia, unspecified; I10 Essential (primary) hypertension; D64.9 Anemia, unspecified; D69.6 Thrombocytopenia, unspecified; R79.89 Other specified abnormal findings of blood chemistry; K21.9 Gastro-esophageal reflux disease without esophagitis; I27.20 Pulmonary hypertension, unspecified; Z20.822 Contact with and (suspected) exposure to COVID-19; E88.09 Other disorders of plasma-protein metabolism, not elsewhere classified; Z88.6 Allergy status to analgesic agent; Z88.1 Allergy status to other antibiotic agents; Z88.5 Allergy status to narcotic agent; Z88.8 Allergy status to other drugs, medicaments and biological substances; Z79.899 Other long term (current) drug therapy; Z85.850 Personal history of malignant neoplasm of thyroid; R29.702 NIHSS score 2
CPT/HCPCS: 36415; 70450-TC; 71045; 76376; 80048; 80053; 80061; 83735; 83880; 84100; 84443; 84484; 85025; 87081; 93005; 93880; 97110-GP; 97116-GP; 97163-GP; 97530-GP; 99291; G0378

== ENCOUNTER 2023-07-08 05:22 | Inpatient (IN) | payer OTHER ==
[~2023-07-08] VITALS: Ht 160 cm; Wt 51.0 kg
[~2023-07-08 05:22] MED LIST changes: +ASA81 PO; -FLUT1AER INH; +LACT1CAP69 PO; +LIP20 PO; -OMEP-268 PO; -RIFA150C7 PO; -VANC1.5V IV
[2023-07-08 05:54] VITALS: BP_SYST 114; PULSE 78; RESP 16; TEMP 97.3; O2SAT 98
[2023-07-08 06:45] LABS: BASOPHILS # (AUTO) 0.1 K/uL (0.0-0.2); BASOPHILS % (AUTO) 0.3 % (0.0-2.0); HEMATOCRIT 36.1 % (36-48); HEMOGLOBIN 12.4 g/dL (12.0-16.0); LYMPHOCYTES # (AUTO) 0.8 K/uL (1.0-5.5); LYMPHOCYTES % (AUTO) 4.4 % (20.5-51.5); MEAN CORPUSCULAR HEMOGLOBIN 32 pg (27-31); MEAN CORPUSCULAR HGB CONC 34 % (32-36); MEAN CORPUSCULAR VOLUME 94 fL (79.0-98.0); MONOCYTES # (AUTO) 1.6 K/uL (0.0-1.0); MONOCYTES % (AUTO) 9.5 % (1.7-9.3); NEUTROPHILS # (AUTO) 14.7 K/uL (1.8-7.7); NEUTROPHILS % (AUTO) 85.8 % (40.0-70.0); PLATELET COUNT (AUTO) 388 K/uL (130-430); RED BLOOD CELL COUNT(AUTO) 3.84 MIL/uL (4.2-6.2); WHITE BLOOD COUNT (AUTO) 17.1 K/uL (4.8-10.8)
[2023-07-08 07:10] LABS: ANION GAP 13 (5-15); CALCIUM 8.8 mg/dL (8.4-11.0); CARBON DIOXIDE 25 mmol/L (23-29); CHLORIDE 106 mmol/L (98-107); CREATINE KINASE, TOTAL 100 U/L (26-192); CREATININE 0.86 mg/dL (0.55-1.30); GLUCOSE 126 mg/dL (74-106); POTASSIUM 3.8 mmol/L (3.5-5.1); SODIUM SERUM 144 mmol/L (136-145); UREA NITROGEN, BLOOD 23 mg/dL (8-21)
[2023-07-08 07:54] LABS: INR 1.1 (0.8-1.2); PROTHROMBIN TIME 10.9 SECS (9.5-12.5)
[2023-07-08 08:00] LABS: ALANINE AMINOTRANSFERASE 159 U/L (12-78); ALBUMIN 2.8 g/dL (3.4-4.8); ASPARTATE AMINOTRANSFERASE 252 U/L (10-37); BILIRUBIN,DIRECT 1.4 mg/dL (0.0-0.3); FREE T4 (FREE THYROXINE) 1.1 ng/dL (0.6-1.6); THYROID STIMULATING HORMONE 1.56 uIu/mL (0.34-4.82); TOTAL BILIRUBIN 2.1 mg/dL (0.0-1.0); TOTAL PROTEIN, SERUM 8.2 g/dL (6.4-8.3)
[2023-07-08 08:50] LABS: ACETONE, SERUM NEGATIVE (NEGATIVE)
[2023-07-08] MEDS: cefTRIAXone 1 GM IVPB PREMIX 50 ML IV SCH (08:52)
[2023-07-08 08:57] LABS: BILIRUBIN,URINE NEGATIVE (NEGATIVE); BLOOD, URINE NEGATIVE (NEGATIVE); CLARITY/URINE SL CLOUDY (CLEAR); COLOR,URINE YELLOW (YELLOW); GLUCOSE,URINE NEGATIVE (NEGATIVE); KETONES,URINE NEGATIVE (NEGATIVE); LEUKOCYTE ESTERASE ,URINE TRACE (NEGATIVE); NITRITE, URINE NEGATIVE (NEGATIVE); PROTEIN URINE TRACE (NEGATIVE)
[2023-07-08 09:17] LABS: BACTERIA,URINE FEW /HPF (None Seen); RBC,URINE 0-3 /HPF (0-3)
[2023-07-08] MEDS: NACL 0.9% 1,000 ML IV ONE (09:18)
[2023-07-08 09:43] VITALS: BP_SYST 118; PULSE 75; O2SAT 98
[2023-07-08] MEDS ORDERED: ALBUTEROL SULFATE 0.083% 2.5 MG/3 ML VIAL.NEB INH PRN (09:45)
[2023-07-08] MEDS ORDERED: ONDANSETRON HCL 4 MG/2 ML VIAL IVP PRN (09:45)
[2023-07-08] MEDS ORDERED: ACETAMINOPHEN 325 MG TABLET PO PRN ×2 (09:45→10:15)
[2023-07-08] MEDS ORDERED: SULF1TAB47 PO (10:25)
[2023-07-08] MEDS ORDERED: ASPI-989 PO (10:25)
[2023-07-08] MEDS ORDERED: ATOR10TA68 PO (10:25)
[2023-07-08] MEDS ORDERED: LANS15CA19 PO (10:25)
[2023-07-08] MEDS: LEVOTHYROXINE SODIUM 0.1 MG TABLET PO ONE (10:57)
[2023-07-08 17:57] VITALS: BP_SYST 106; PULSE 70; RESP 16; TEMP 97.7; O2SAT 99
[2023-07-08 19:21] VITALS: BP_SYST 106; PULSE 70; RESP 16; TEMP 97.7
[2023-07-08] MEDS ORDERED: ATORVASTATIN 20 MG TABLET PO SCH (21:00)
[2023-07-09 00:20] VITALS: BP_SYST 104; PULSE 65; RESP 17; TEMP 97.6; O2SAT 94
[2023-07-09 05:37] LABS: BASOPHILS % (AUTO) 0.5 % (0.0-2.0); EOSINOPHILS # (AUTO) 0.2 K/uL (0.0-0.4); EOSINOPHILS % (AUTO) 2.4 % (0.0-4.0); HEMATOCRIT 35.2 % (36-48); HEMOGLOBIN 12.1 g/dL (12.0-16.0); LYMPHOCYTES % (AUTO) 10.2 % (20.5-51.5); MEAN CORPUSCULAR HEMOGLOBIN 32 pg (27-31); MEAN CORPUSCULAR HGB CONC 34 % (32-36); MEAN CORPUSCULAR VOLUME 95 fL (79.0-98.0); MONOCYTES # (AUTO) 1.1 K/uL (0.0-1.0); MONOCYTES % (AUTO) 11.4 % (1.7-9.3); NEUTROPHILS % (AUTO) 75.5 % (40.0-70.0); PLATELET COUNT (AUTO) 347 K/uL (130-430); RED BLOOD CELL COUNT(AUTO) 3.72 MIL/uL (4.2-6.2); RED CELL DISTRIBUTION WIDTH 15.5 % (9.0-15.0)
[2023-07-09] MEDS: LEVOTHYROXINE SODIUM 0.1 MG TABLET PO SCH (05:44)
[2023-07-09 06:15] LABS: ALANINE AMINOTRANSFERASE 99 U/L (12-78); ALBUMIN 2.4 g/dL (3.4-4.8); ANION GAP 11 (5-15); CALCIUM 8.4 mg/dL (8.4-11.0); CARBON DIOXIDE 24 mmol/L (23-29); CHLORIDE 108 mmol/L (98-107); CREATININE 0.72 mg/dL (0.55-1.30); GLUCOSE 97 mg/dL (74-106); POTASSIUM 3.7 mmol/L (3.5-5.1); SODIUM SERUM 143 mmol/L (136-145); TOTAL BILIRUBIN 1.3 mg/dL (0.0-1.0); TOTAL PROTEIN, SERUM 7.4 g/dL (6.4-8.3); UREA NITROGEN, BLOOD 26 mg/dL (8-21)
[2023-07-09 07:47] LABS: WHITE BLOOD COUNT (AUTO) 9.3 K/uL (4.8-10.8)
[2023-07-09 07:56] LABS: ASPARTATE AMINOTRANSFERASE 105 U/L (10-37)
[2023-07-09 08:00] VITALS: BP_SYST 114; PULSE 78; RESP 16; TEMP 98.2; O2SAT 95
[2023-07-09 08:35] VITALS: O2SAT 96
[2023-07-09] MEDS: ASPIRIN 81 MG TAB.CHEW PO SCH (09:17)
[2023-07-09] MEDS: cefTRIAXone 1 GM IVPB PREMIX 50 ML IV SCH (10:17)
[2023-07-09 11:10] VITALS: BP_SYST 124; PULSE 69; RESP 16; TEMP 98; O2SAT 94
[2023-07-09 15:07] VITALS: BP_SYST 114; PULSE 68; RESP 15; TEMP 97.7; O2SAT 95
[2023-07-09 17:48] VITALS: BP_SYST 114; PULSE 68; RESP 15; TEMP 97.7; O2SAT 95
== END 2023-07-09 18:45 | disposition home health service (06) | DRG 641 ==
LOC: SED 05:22 → SMU 09:38
PROVIDERS: ADMIT Family Medicine; ATTEND Family Medicine
DX: E86.0 Dehydration (principal); N39.0 Urinary tract infection, site not specified; E44.0 Moderate protein-calorie malnutrition; Z68.1 Body mass index [BMI] 19.9 or less, adult; D72.829 Elevated white blood cell count, unspecified; E78.5 Hyperlipidemia, unspecified; E80.6 Other disorders of bilirubin metabolism; E03.9 Hypothyroidism, unspecified; Z90.49 Acquired absence of other specified parts of digestive tract; Z86.73 Personal history of transient ischemic attack (TIA), and cerebral infarction without residual deficits
CPT/HCPCS: 36415; 71045; 72170-TC; 80048; 80053; 80076; 81000; 81001; 81015; 82009; 82550; 82948; 83605; 84439; 84443; 85025; 85610; 85730; 87040; 87081; 87086; 93005; 97112-GP; 97116-GP; 99285; J0696